=== PATIENT | female | born 1960 | race Hispanic/Latino ===

== ENCOUNTER 2018-10-26 13:46 | Outpatient (CLI) | payer OTHER ==
--- NOTE | 2018-10-26 14:08 | RAD ---
LEFT HIP TWO VIEWS: History: Left hip pain. FINDINGS/IMPRESSION: Mild/moderate degenerative changes are present. No fracture, dislocation, or bony destruction is iden tified. POS: OFF
== END 2018-10-26 13:47 | disposition home or self-care (01) ==
LOC: BICRAD 13:46
PROVIDERS: ATTEND Internal Medicine
DX: M25.552 Pain in left hip (principal); M17.12 Unilateral primary osteoarthritis, left knee

== ENCOUNTER 2018-10-26 14:02 | Outpatient (CLI) | payer OTHER ==
--- NOTE | 2018-10-26 15:22 | BD ---
BONE DENSITOMETRY USING DEXA: Date: 10/26/18 HISTORY: Postmenopausal screening for osteoporosis. FINDINGS: Lumbar Spine: BMD (g/cm2) L1 0.840 T-Score: -1.4 Z-Score: -0.2 L2 0.936 T-Score: -0.8 Z-Score: 0.5 L3 0.961 T-Score: -1.1 Z-Score: 0.3 L4 0.970 T-Score: -0.8 Z-Score: 0.6 L1-L4 0.930 T-Score: -1.1 Z-Score: 0.3 Femoral Neck: 0.646 T-Score: -1.8 Z-Score: -0.6 Total Femur: 0.899 T-Score: 0.4 Z-Score: 0.6 The 10 year fracture risk for a major osteoporotic fracture is 8.4% and for a hip fracture is 0.9%. IMPRESSION: Osteopenia. POS: OFF
== END 2018-10-26 14:03 | disposition home or self-care (01) ==
LOC: BICMAMMO 14:02
PROVIDERS: ATTEND Internal Medicine
DX: Z12.31 Encounter for screening mammogram for malignant neoplasm of breast (principal); M85.89 Other specified disorders of bone density and structure, multiple sites
CPT/HCPCS: 77063; 77067; 77080

== ENCOUNTER 2018-12-07 10:32 | Outpatient (CLI) | payer OTHER ==
--- NOTE | 2018-12-07 11:25 | ULT ---
HEPATIC ULTRASOUND WITH DOPPLER: Date: 12-07-18 Provided Clinical History: Abnormal LFTs. FINDINGS: The visualized abdominal aorta, IVC, and pancreas appear normal. The liver demonstrates increased ech ogenicity compatible with fatty infiltration without evidence for mass or intrahepatic biliary ductal dilatation. The common duct is not dilated. The gallbladder is not visualized compatible with the pr ovided history of prior cholecystectomy. Right kidney demonstrates no hydronephrosis or mass. The spl een is not enlarged and demonstrates no focal abnormality. Color doppler and spectral analysis of the hepatic portal, hepatic arterial, hepatic venous, splenic arterial and splenic venous waveforms demonstrates normal direction of flow. IMPRESSION: 1. Fatty infiltration of the liver. 2. Normal hepatic doppler. POS: [facility]
== END 2018-12-07 10:33 | disposition home or self-care (01) ==
LOC: BICULT 10:32
PROVIDERS: ATTEND Internal Medicine Gastroenterology
DX: K58.1 Irritable bowel syndrome with constipation (principal); R94.5 Abnormal results of liver function studies; Z80.0 Family history of malignant neoplasm of digestive organs; K76.0 Fatty (change of) liver, not elsewhere classified
CPT/HCPCS: 76705

== ENCOUNTER 2020-02-22 17:49 | Emergency (ER) | payer OTHER, MEDICARE ==
[~2020-02-22 17:49] MED LIST: Iopamidol-370 76% 500 ML 1 ML ONE
[2020-02-22 18:34] LABS: Bilirubin Negative (Negative); Blood, Urine Negative (Negative); Clarity Clear (Clear); Glucose, Urine (Dipstick) Normal (Negative); Leukocyte Negative Leu/uL (Negative); Nitrite Negative (Negative); Protein, Urine (Dipstick) Negative (Neg-Trace)
[2020-02-22 18:39] LABS: #Basophils 0.1 thou/uL (0.0-0.2); #Eosinphils 0.3 thou/uL (0.0-0.7); #Lymphocytes 2.2 thou/uL (1.20-3.40); #Monocytes 0.4 thou/uL (0.11-0.59); #Neutrophils 2.7 thou/uL (1.40-6.50); %Basophils 1.1 % (0.0-1.0); %Eosinophils 5.3 % (0.0-10.0); %Monocytes 7.4 % (0.0-10.0); %Neutrophils 47.3 % (42.0-75.0); Hemoglobin 13.7 g/dL (12.0-16.0); Mean Corpuscular HGB CONC 31.9 g/dL (32.0-36.0); Mean Corpuscular Hemoglobin 28.6 pg (27.0-31.0); Mean Corpuscular Volume 89.6 fL (78.0-98.0); Mean Platelet Volume 8.4 fL (7.4-10.4); Platelet Count 191 thou/uL (130-400); RBC Distribution Width 13.2 % (11.5-14.5); Red Blood Cell (RBC) Count 4.77 mill/uL (4.20-5.40); White Blood Cell (WBC) Count 5.6 thou/uL (4.8-10.8)
[2020-02-22 19:00] LABS: ALT (SGPT) 48 U/L (8-55); AST (SGOT) 45 U/L (5-34); Albumin 3.8 g/dL (3.5-5.0); Alkaline Phosphatase 78 U/L (40-110); Anion Gap 10 mmol/L (10-20); BUN (Urea Nitrogen) 8 mg/dL (9.8-20.1); Bilirubin, Total 0.3 mg/dL (0.2-1.2); Calc. Creatinine Clearance 0 mL/min (70-130); Calcium 8.9 mg/dL (7.8-10.44); Carbon Dioxide 26 mmol/L (22-29); Chloride 106 mmol/L (98-107); Estimated GFR-MDRD 76; Globulin 3.5 g/dL (2.4-3.5); Glucose 96 mg/dL (70-105); Lipase 50 U/L (8-78); Potassium 4.2 mmol/L (3.5-5.1); Protein, Total 7.3 g/dL (6.0-8.3); Sodium 138 mmol/L (136-145)
--- NOTE | 2020-02-22 20:32 | CT ---
CT ABDOMEN AND PELVIS PERFORMED WITH CONTRAST ENHANCEMENT: 02/22/20 HISTORY: Right lower quadrant pain worsening today. The lung bases are clear. There is some minimal ground glass opacity adjacent to an osteophyte in a r ight perivertebral location. This is probably chronic change related to the osteophyte. There are fat ty changes of the liver. The spleen and pancreas regions are unremarkable. The gallbladder has been r emoved. Right and left adrenal glands and right and left kidneys are normal in size. There is no significant periaortic or mesenteric lymphadenopathy. CT OF PELVIS PERFORMED WITH CONTRAST ENHANCEMENT: Some minimal diverticular changes without any inflammatory process. The appendix is normal in appeara nce. No pelvic lymphadenopathy or mass. No significant bony findings. IMPRESSION: 1. Minimal sigmoid diverticulosis. 2. Normal appendix. 3. Fatty change of the liver. 4. There is some slight wall thickening to the antrum region. This could indicate a mild antriti s. POS: [facility]
== END 2020-02-22 20:05 | disposition home or self-care (01) ==
LOC: ERS 17:49
DX: R10.31 Right lower quadrant pain (principal); E11.9 Type 2 diabetes mellitus without complications; I10 Essential (primary) hypertension; K21.9 Gastro-esophageal reflux disease without esophagitis; F32.9 Major depressive disorder, single episode, unspecified; Z79.84 Long term (current) use of oral hypoglycemic drugs; Z79.899 Other long term (current) drug therapy
CPT/HCPCS: 36415; 74177; 80053; 81003; 83690; 85025; Q9967

== ENCOUNTER 2020-11-22 16:30 | Outpatient (CLI) | payer MEDICARE, OTHER | END 2020-11-22 16:31 | disposition home or self-care (01) | LOC: SLEEPLAB 16:30 | PROVIDERS: ATTEND Family Medicine | DX: G47.33 Obstructive sleep apnea (adult) (pediatric) (principal); R53.83 Other fatigue; F41.9 Anxiety disorder, unspecified; G47.00 Insomnia, unspecified; I10 Essential (primary) hypertension; R06.83 Snoring | CPT/HCPCS: 95806 ==